=== PATIENT | male | born 1980 | race Caucasian/White ===

== ENCOUNTER 2016-12-02 21:57 | Observation (INO) ==
--- NOTE | 2016-12-02 23:23 | Emergency Department Note ---
SOB HPI - General Chief Complaint: Shortness of Breath/Dyspnea Stated Complaint: shortness of breath Time Seen by Provider: 12/02/16 23:20 Source: family Mode of arrival: ambulatory Limitations: no limitations - History of Present Illness States he has a history of CHF, is in the process of being set up for hospice but does not have any oxygen at his friend's house where he is currently staying up. He came down from [facility] about 24 hours ago. Since then has developed progressive shortness of breath to where his friend brought him in for further treatment. They just wanted to get some oxygen for him. He is not on hospice yet, but apparently is in the process of being set up for hospice as he has severe CHF, history of drug use in the past and cardiomyopathy. Has been to [facility], [facility], released one week ago from [facility], has been staying with friends and family up in [place] and was on oxygen up there. Was unable to bring his oxygen with him. Does have ankle swelling. He is on Xarelto, also has a DVT in the right leg up.this have some chest tightness, chest pain off and on MD Complaint: shortness of breath - Related Data Home Medications Medication Instructions Recorded Confirmed Carvedilol [Coreg] 3.125 mg PO BID 12/03/16 12/03/16 Citalopram [Celexa] 20 mg PO ONCE 12/03/16 12/03/16 Furosemide [Lasix] 40 mg PO BID 12/03/16 12/03/16 Guaifen-Codeine 100-10 mg/5 ml 100 mg PO Q4 PRN 12/03/16 12/03/16 Ondansetron [Zofran Odt] 8 mg PO Q8 PRN 12/03/16 12/03/16 Rivaroxaban [Xarelto] 15 mg PO BIDCC 12/03/16 12/03/16 Spironolactone [Aldactone] 25 mg PO ONCE 12/03/16 12/03/16 metFORMIN [Glucophage] 500 mg PO BIDCC 12/03/16 12/03/16 oxyCODONE [OxyCONTIN] 10 mg PO TID 12/03/16 12/03/16 Allergies Allergy/AdvReac Type Severity Reaction Status Date / Time No Known Drug Allergies Allergy Unverified 12/02/16 21:58 Review of Systems All systems ED: reviewed and negative except as stated. Past Medical History - Past Medical History Source: nursing notes reviewed Medical history: Reports: CHF, DVT, valvular heart disease, other (history of drug use) Family history: Reports: no significant family history, non-contributory - Social History smoking status: Former smoker Alcohol use: Reports: None Drug use: Reports: none Physical Exam - General Limitations: no limitations General appearance: alert, in distress - Head Head exam: atraumatic, normocephalic - Eye Eye exam: Present: normal appearance, PERRL. Absent: scleral icterus, conjunctival injection - ENT ENT exam: normal exam, normal oropharynx, mucous membranes moist, TM's normal bilaterally - Neck Neck exam: Present: normal inspection, full ROM, trachea midline - Chest Chest inspection: Present: normal inspection - Respiratory Respiratory exam: Present: respiratory distress, wheezes - Cardiovascular Cardiovascular exam: Present: regular rate, +S3 - Abdominal Exam Abdominal exam: Present: soft, normal bowel sounds. Absent: distention, tenderness, guarding - Extremities Exam Extremities exam: Present: normal inspection, pedal edema - Back Exam Back exam: Present: normal inspection. Absent: CVA tenderness (R), CVA tenderness (L) - Neurological Exam Neurological exam: Present: alert, oriented X3, CN II-XII intact. Absent: motor sensory deficit - Psychiatric Psychiatric exam: Present: normal affect - Skin Skin exam: Present: warm, dry, intact, cyanosis, mottled Course - Reevaluation(s) Reevaluation #1: Medical records reviewed. There were over [address] [facility] , which I looked at. He does have a history of severe right-sided heart failure secondary to long-standing oxycodone abuse. He was worked up, he had echocardiograms done, he has severe and end-stage pulmonary hypertension, which is untreatable at this point other than with his failure medications. The. He will need oxygen., Unfortunately, we are not able to set him up with O2 at home at this hour of the night. Thus, he will need to be admitted, perinatal social worker will need to be contacted regarding placement, his problems are chronic except they have become acute in the sense that he has an oxygen requirement, he does not wish resuscitation in the event his heart stops. He is aware of the severity of his illness and apparently was in the process of having hospice set up for him at his friend's house here in [facility]. He came down here from [place] where he was staying with his [id number] and his mother, but moved down here just the last 24 hours to be closer to his friend. He came in without oxygen, his levels were between 88 and 90% on room air.nfortunately, he has burned out all his veins for his continued IV drug abuse and we are not able to get IV access for him. As he is a no code. We willcare for him on themedical floor, telemetry monitoringthus not indicated as he has a DNR order,he has been medically stable since his discharge from [facility],however, does have an oxygen requirement. Vital Signs Temperature 98.0 F 12/02/16 21:58 Pulse Rate 84 12/02/16 21:58 Respiratory Rate 19 12/02/16 21:58 Blood Pressure 111/73 12/02/16 21:58 Pulse Oximetry (%) 89 L 12/02/16 21:58 Temperature 98.0 F 12/02/16 21:58 Pulse Rate 82 12/03/16 00:33 Respiratory Rate 19 12/02/16 21:58 Blood Pressure 103/83 12/03/16 00:33 Pulse Oximetry (%) 90 12/03/16 00:33 Shortness of Breath/Dyspnea - [facility] Narrative Medical decision making narrative: final diagnosis is CHF, pulmonary hypertension secondary to intravenous drug abuse He will need perinatal social worker consult, oxygen, and he can be started on his by mouth medications. The. His white blood cell count was normal, recently completed a course of antibioticsfor presumed abdominal infectionand/ or pneumonia. He does have an effusion on his chest x-ray, which was seen before. Discussed with Dr. Fisher - Lab Data Result diagrams: 12/02/16 23:27 12/02/16 23:27 Lab Results 12/02/16 12/02/16 12/02/16 Range/Units 23:27 23:27 23:27 WBC 9.1 (4.5-11.0) K/mcL RBC 4.91 (4.50-5.90) M/mcL Hgb 10.8 L (13.5-16.5) g/dL Hct 35.5 L (41.0-55.0) % MCV 72.3 L (80.0-100.0) fL MCH 22.0 L (26.0-34.0) pg MCHC 30.5 L (31.0-36.0) g/dL RDW 19.5 H (11.5-14.5) % Plt Count 247 (140-440) K/mcL MPV 8.4 (7.4-10.4) fL Gran % 74.0 (38.0-78.0) % Lymph % (Auto) 19.7 (15.5-49.0) % Hand % (Auto) 5.7 (1.0-9.0) % Eos % (Auto) 0.4 (0.0-7.0) % Baso % (Auto) 0.2 (0.0-2.0) % Gran # 6.7 (1.8-8.0) K/mcL Lymph # 1.8 (1.5-4.8) K/mcL Hand # 0.5 (0.1-0.9) K/mcL Eos # 0 (0.0-0.7) K/mcL Baso # 0 (0.0-0.3) K/mcL Sodium 125 L (133-145) mmol/L Potassium 4.9 (3.3-5.1) mmol/L Chloride 83 L (96-108) mmol/L Carbon Dioxide 28 (22-30) mmol/L Anion Gap 14.0 (8-16) BUN 33 H (6-20) mg/dl Creatinine 1.2 (0.7-1.2) mg/dl GFR Calculation 78 Glucose 223 H (70-105) mg/dL Calcium 8.3 L (8.6-10.4) mg/dl Magnesium 1.9 (1.6-2.5) mg/dL Total Bilirubin 0.8 (0.0-1.0) mg/dL AST 110 H (0-37) U/l ALT 62 H (0-40) U/l Alkaline Phosphatase 117 (39-117) U/L Troponin T < 0.01 (0-0.03) ng/ml NT-Pro-B Natriuret Pep 3989.0 H (0-125) pg/ml Total Protein 6.9 (5.9-8.4) gm/dL Albumin 3.0 L (3.2-5.2) gm/dL Globulin 3.9 H (2.2-3.7) gm/dL Albumin/Globulin Ratio 0.8 L (1.0-2.3) Disposition Clinical Impression: Congestive heart failure Disposition: Xfer As Outpt/Obs ([facility]) Condition: Fair Referrals: Lacy Steiner MD [Primary Care Provider] -
[2016-12-02] MEDS ORDERED: 0.9 % SODIUM CHLORIDE 10 ML SYRINGE IV ONE (23:25)
[2016-12-03 00:15] LABS: Basophils # (Auto) 0 K/mcL (0.0-0.3); Basophils % (Auto) 0.2 % (0.0-2.0); Eosinophils # (Auto) 0 K/mcL (0.0-0.7); Eosinophils % (Auto) 0.4 % (0.0-7.0); Lymphocytes # (Auto) 1.8 K/mcL (1.5-4.8); Lymphocytes % (Auto) 19.7 % (15.5-49.0); Mean Cell Volume 72.3 fL (80.0-100.0); Mean Corpuscular HGB Conc 30.5 g/dL (31.0-36.0); Monocytes # (Auto) 0.5 K/mcL (0.1-0.9); Monocytes % (Auto) 5.7 % (1.0-9.0); Platelet Count 247 K/mcL (140-440); RBC 4.91 M/mcL (4.50-5.90); Red Cell Distribution Width 19.5 % (11.5-14.5)
[2016-12-03 00:26] LABS: ALT/SGPT 62 U/l (0-40); Albumin/Globulin Ratio 0.8 (1.0-2.3); Alkaline Phosphatase 117 U/L (39-117); Blood Urea Nitrogen 33 mg/dl (6-20); Magnesium 1.9 mg/dL (1.6-2.5)
[2016-12-03] MEDS ORDERED: ACETAMINOPHEN 325 MG TABLET PO PRN (01:45)
[2016-12-03] MEDS ORDERED: ONDANSETRON 4 MG/2 ML VIAL IV PRN (01:45)
[2016-12-03] MEDS: ONDANSETRON ODT 4 MG TABLET SL PRN ×2 (07:15→15:44)
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
[2016-12-03] MEDS ORDERED: oxyCODONE HCL 5 MG TABLET PO PRN (08:33)
[2016-12-03] MEDS: oxyCODONE 10 MG TAB.ER.12H PO SCH ×3 (08:34→21:22)
--- NOTE | 2016-12-03 08:39 | XRay Report ---
CLINICAL INFORMATION: Dyspnea COMPARISON: None. FINDINGS: Mild cardiomegaly is appreciated. Mediastinum and pulmonary vasculature are normal. Moderate size right pleural effusion is noted with moderate underlying airspace disease in the inferior right middle and lower lobes. This is likely atelectasis. Bones and soft tissues are normal IMPRESSION: Moderate right pleural effusion with moderate overlying atelectasis, or less likely, infiltrate in the inferior right middle and lower lobes. Mild cardiomegaly - no evidence CHF Interpreted and Authenticated by: Alonzo Hernandez 12/03/16
[2016-12-03] MEDS: CARVEDILOL 3.125 MG TABLET PO SCH ×2 (08:41→17:43)
[2016-12-03] MEDS: SPIRONOLACTONE 25 MG TABLET PO SCH (08:41)
[2016-12-03] MEDS: FUROSEMIDE 40 MG TABLET PO SCH ×2 (08:41→17:42)
[2016-12-03] MEDS: CITALOPRAM 20 MG TABLET PO SCH (08:41)
[2016-12-03] MEDS ORDERED: oxyCODONE 10 MG TAB.ER.12H PO SCH (09:00)
[2016-12-03] MEDS: LIDOCAINE PATCH TOPICAL SCH ×2 (13:20→21:21)
[2016-12-03] MEDS ORDERED: DEXTROSE 50% 50 ML VIAL IV PRN (13:26)
[2016-12-03] MEDS ORDERED: AZITHROMYCIN 250 MG TABLET PO ONE (14:00)
[2016-12-03] MEDS ORDERED: AMOXICILLIN/POTASSIUM CLAV 875 MG TABLET PO SCH (17:30)
[2016-12-03] MEDS: INSULIN LISPRO 1 UNIT/0.01 ML UNIT SQ SCH ×2 (17:42→21:22)
[2016-12-03] MEDS: RIVAROXABAN 15 MG TABLET PO SCH (17:44)
[2016-12-03] MEDS ORDERED: ONDANSETRON ODT 4 MG TABLET SL PRN (18:32)
[2016-12-03] MEDS: PIPERACILLIN SODIUM/TAZOBACTAM 3.375 GM in DEXTROSE 5% IN WATER 50 ML IV SCH (19:07)
[2016-12-03] MEDS: AZITHROMYCIN 500 MG in DEXTROSE 5% IN WATER 250 ML IV SCH (19:07)
[2016-12-04] MEDS: PIPERACILLIN SODIUM/TAZOBACTAM 3.375 GM in DEXTROSE 5% IN WATER 50 ML IV SCH (05:04)
[2016-12-04] MEDS: FUROSEMIDE 40 MG TABLET PO SCH ×2 (08:36→16:45)
[2016-12-04] MEDS: CARVEDILOL 3.125 MG TABLET PO SCH ×2 (08:36→17:25)
[2016-12-04] MEDS: RIVAROXABAN 15 MG TABLET PO SCH ×2 (08:36→17:25)
[2016-12-04] MEDS: SPIRONOLACTONE 25 MG TABLET PO SCH (08:36)
[2016-12-04] MEDS: INSULIN LISPRO 1 UNIT/0.01 ML UNIT SQ SCH ×4 (08:36→21:02)
[2016-12-04] MEDS: CITALOPRAM 20 MG TABLET PO SCH (08:37)
[2016-12-04] MEDS: oxyCODONE 10 MG TAB.ER.12H PO SCH ×3 (08:37→21:02)
[2016-12-04] MEDS ORDERED: AZITHROMYCIN 250 MG TABLET PO SCH (09:00)
[2016-12-04] MEDS: AZITHROMYCIN 250 MG TABLET PO SCH (10:06)
[2016-12-04] MEDS: AZITHROMYCIN 500 MG in DEXTROSE 5% IN WATER 250 ML IV SCH (10:13)
[2016-12-04] MEDS: LIDOCAINE PATCH TOPICAL SCH ×2 (12:32→21:04)
--- NOTE | 2016-12-04 14:01 | Internal Med Progress Note ---
Medical - PN: Subj Patient information: Note initiated : 12/04/16 at 2:01 pm Service Date, if different from initiated Date: [] Patient: Hector Willett 36 y/o M admitted on 12/03/16 for Shortness of breath. Chief Complaint: [] Interval history: 12/03/2016: History of present illness: Mr. Willett is a 36 year old male ho was in his normal state of health until about 6 months ago when he began to notice significant shortness of breath. He reports he went to the emergency room several times, and they just told him that he had issues related to being a former drug abuser finally, he was admitted to the hospital about2-1/2 months ago, and was subsequently diagnosed with pulmonary hypertension and severe right heart failure. Apparently a week or 2 after his angiogram, he developed a right lower extremity DVT. He was apparently admitted at [facility] [place] well as in [facility], for workup and treatment. He was started on several medications, and then discharged on Monday. [place], he decided to move to [facility] with a friend, so that he would be closer [facility] treatment. He was supposed to transfer down here to the [facility] clinic. Unfortunately several days ago he developed a cough productive of brownish phlegm, and has had increasing shortness of breath ever since. -He reports that the doctors told him at the other hospital that he might be a transplant candidate, but would have to be absolutely drug free for at least one year, and they told him they were not sure that he would ot before then. Apparently at least someone has discussed hospice with him as an option also. 12/04/2016: We placed a Lidoderm patch on the patient's mid back last night, and apparently that helped with this pain, and he said he had a really good nights sleep. Unfortunately he ate he continued to have significant nausea and dry heaves. I decided to switch his antibiotics from oral to IV yesterday, but then the nursing staff reminded me several people have tried to get IV access, and could not. So now we have switched his antibiotics back to oral. I believe he is kept those down so far today. Nursing staff notes that sometimes when he is coughing that will trigger the dry heaves. he continues to have a significant cough productive of reddish brown sputum. He continues to have severe fatigue, even with minimal activity. -more of his hospital records were reviewed last night,and he does have severe right heart dysfunction and pulmonary hypertension. It is unclear from the records if he has been abstinent from drugs for 2 months or not. Different writers say different things. He would be a candidate for heart and lung transplant, if he were drug-free for at least 1 year. -Our social work team is working on figuring out his insurance situation and getting him connected with local care. Otherwise, he denies fever or chills, chest pain or palpitations, abdominal pain , vomiting of food, diarrhea or constipation or dysuria. - Constitutional Vitals: Vital Signs Temp Pulse Resp BP Pulse Ox 97.9 F 55 L 16 136/57 96 12/04/16 13:07 12/04/16 13:07 12/04/16 13:07 12/04/16 13:07 12/04/16 13:07 Period Temp Pulse Resp BP Sys/Peña Pulse Ox Last 24 Hr 96.9 F-98.7 F 55-80 16-18 90-136/54-70 91-96 Intake and Output 12/04/16 12/04/16 12/04/16 05:59 13:59 21:59 Intake Total Output Total 200 / 200 Balance -200 / -200 Intake & Output: Intake & Output 12/04/16 12/04/16 12/04/16 05:59 13:59 21:59 Intake Total Output Total 200 / 200 Balance -200 / -200 Intake: Oral Output: Void Amount 200 / 200 Exam: on exam, he is dozing in a recliner. Apparently he is more comfortable in the recliner than in the bed. Neck shows no obvious JVD. Cardiac exam shows regular rate and rhythm. Lungs:have generally decreased breath sounds, with occasional crackles. Abdomen: Appears soft and nontender. Extremities: He has about 3+ edema to above the knee and the right leg, and the left lower extremity shows no edema. Neurologic: He is rather somnolent this morning. Medical - PN: Obj Da - Labs CBC & Chem 7: 12/02/16 23:27 12/02/16 23:27 Labs: 12/04/16: - saturation varies from 89% on room air to 96% on room air to 92% on 2 L 12/03/16: AST is elevated at 110, ALT elevated at 62 BNP is elevated at 3900 Albumin is low at 3.0 EKG shows normal sinus rhythm at a rate of about 75, without obvious acute ischemic changes. Chest x-ray shows a moderately large right pleural effusion with overlying atelectasis or possible infiltrate of the inferiorright middle and lower lobes. Mild cardiomegaly is noted. Meds: Medications Acetaminophen (Tylenol) 650 mg PO Q6HP PRN PRN Reason: PAIN/FEVER > 101 Amoxicillin/Clavulanate [facility] Azithromycin (Zithromax) 250 mg PO DAILY [facility] Stop: 12/07/16 09:01 Last Admin: 12/04/16 10:06 Dose: 250 mg Carvedilol (Coreg) [facility] Last Admin: 12/04/16 08:36 Dose: 3.125 mg Citalopram Hydrobromide (Celexa) 20 mg PO DAILY [facility] Last Admin: 12/04/16 08:37 Dose: 20 mg Dextrose (Dextrose 50%) 0 ml IV UD PRN PRN Reason: Hypoglycemia Diagnostic Test (Pha) (Accu-Chek) 1 each FS [facility] Last Admin: 12/04/16 13:53 Dose: 1 each Furosemide (Lasix) 40 mg PO BIDD [facility] Last Admin: 12/04/16 08:36 Dose: 40 mg Insulin Human Lispro (Humalog) 0 unit SQ [facility] PRN Reason: Protocol Last Admin: 12/04/16 08:36 Dose: Not Given Lidocaine (Lidoderm) 1 patch TOPICAL DAILY@1000 [facility] Last Admin: 12/04/16 12:32 Dose: Not Given Lidocaine (Lidoderm) 0 patch TOPICAL DAILY@2200 [facility] Last Admin: 12/03/16 21:21 Dose: 1 patch Ondansetron HCl (Zofran Odt) 4 mg SL Q4HP PRN PRN Reason: Nausea And Vomiting Last Admin: 12/03/16 18:36 Dose: 4 mg Oxycodone HCl (Oxycontin) 10 mg PO TID [facility] Last Admin: 12/04/16 08:37 Dose: 10 mg Oxycodone HCl (Roxicodone) 5 mg PO Q4HP PRN PRN Reason: Pain Rivaroxaban (Xarelto) 15 mg PO BIDCC [facility] Last Admin: 12/04/16 08:36 Dose: 15 mg Spironolactone (Aldactone) 25 mg PO DAILY [facility] Last Admin: 12/04/16 08:36 Dose: 25 mg Medical - PN: A/P - Time Spent With Patient Total time spent is greater than 50% in coordination of care (as documented) at patient's floor/unit and/or counseling patient: (1) DVT (deep venous thrombosis) Status: Acute Current Visit: Yes (2) Congestive heart failure Status: Chronic Current Visit: Yes (3) Pulmonary hypertension Status: Chronic Current Visit: Yes (4) Hx of drug abuse Status: Chronic Current Visit: Yes (5) CHF (NYHA class III, ACC/AHA stage C) Status: Acute Current Visit: Yes - Narrative A/P Narrative: #1.cardiopulmonary. -this patient was recently diagnosed with severe pulmonary hypertension associated now with severe right-sided heart failure He has chronic and persistent dyspnea. It sounds like his symptoms have improved somewhat since she was started on the appropriate medications, but he does present with room air hypoxia, and will likely require ongoing oxygen therapy. Unfortunately, he has a very poor support system . -he has been placed on oxygen, and hasquite labile oxygen levels, depending on his activity levels. Social work is working on looking into his insurance situation and trying to arrange for outpatient follow-up and outpatient care. Because of his recent drug abuse, he is not a candidate for transplant at least not until he is clean for 1 year. They told him he might not survive that long. -He also has a long-standing history of PTSD, and has been self-medicating with drugs and alcohol. He is now been abstinent for about 2 months. He is now on medications to help with both his chronic pain and chronic anxiety. -I believe he is to establish care with the [facility] clinic locally. #2. Infectious disease. The patient does have a cough productive of brownish phlegm. -both oral Zithromax and Augmentin have been prescribed, and hopefully he can keep these down, as he appears to have signs and symptoms of pneumonia versus bronchitis. -Tussin before meals to help with his cough. -review of other hospital records show that his hepatitis panel and his HIV screens were negative. I did not see if anyone had checked him for tuberculosis. #3. DVT. The patient has been placed on Xarelto for 6 months for his right lower extremity DVT, which appears to be related to his angiogram. Apparently he was tried on Coumadin but could not keep levels stable. #4. endocrine. Type 2 diabetes. He was transitioned to metformin when he left the previous hospital, but I am not sure that's a great choice for him given diuretic therapy and mild liver dysfunction. -current numbers are labile, with glucoses ranging from 1:30 to 364. He is being covered with sliding scale insulin. according to nurses he also tends to like sugary foods and sugary drinks, and really doesn't like to eat protein or fat. -for diabetes education. Consider starting low-dose Lantus. -Hyponatremia. This is likely due to diuretic use. Continue to monitor. #5. Psychiatric. the patient sounds like he has a long-standing history of anxiety and probable PTSD. He certainly was self-medicating for a number of years. He is now on Celexa, and ideally should have psychiatric follow-up. #6. CODE STATUS: He is reported as a no CPR candidate. He apparently was told at the previous hospital that he was terminal, although given his very young age and in reasonable health status outside of his current active issues, he may well survive for the one year that would be needed for him to be placed on the transplant list, if he can stay clean and free of illegal drugs. We may want to revisit this issue at a later time. 37. Social. He will need a social work consult to help facilitate obtaining Medicaid insurance, and other needed medical treatments at this time. We will need to be sure that he is also hooked up with a new primary care provider,and that he will have follow-up with heart and lung specialist as needed. #8. Chronic pain. He apparently has significant chronic back pain. He is currently been weaned to OxyContin 10 mg 3 times a day. I've added a when necessary oxycodone dose We could add low-dose Tylenol cautiously, in view of his liver dysfunction, which is likely due to passive congestion. -The Lidoderm patch does apparently seem to offer some relief of back pain, and did allow him to sleep last night. . physical therapy. He is not a good candidate for NSAIDs at this time. -we could look into trying a TENS unit as well. So far today, this visit is taken approximately 35 minutes, to review his case with nursing staff as well as social work, review his test results and more medical records, interview and examine him, and write orders. Medical - PN: Qual - VTE Deep Vein Thrombosis/Pulmonary Embolism Present on Admission: No
[2016-12-04] MEDS ORDERED: guaiFENesin/CODEINE 10 ML UDC PO PRN (15:02)
[2016-12-04] MEDS: AMOXICILLIN/POTASSIUM CLAV 875 MG TABLET PO SCH (17:25)
[2016-12-04] MEDS ORDERED: INSULIN GLARGINE, HUMAN 1 UNIT/0.01 ML SQ SCH (21:00)
[2016-12-05 05:40] LABS: Basophils # (Auto) 0 K/mcL (0.0-0.3); Basophils % (Auto) 0.1 % (0.0-2.0); Eosinophils # (Auto) 0 K/mcL (0.0-0.7); Eosinophils % (Auto) 0.1 % (0.0-7.0); Granulocytes % (Auto) 68.4 % (38.0-78.0); Lymphocytes # (Auto) 1.7 K/mcL (1.5-4.8); Lymphocytes % (Auto) 23.7 % (15.5-49.0); Mean Cell Volume 71.1 fL (80.0-100.0); Mean Corpuscular HGB Conc 30.8 g/dL (31.0-36.0); Mean Corpuscular Hemoglobin 21.9 pg (26.0-34.0); Monocytes # (Auto) 0.6 K/mcL (0.1-0.9); Monocytes % (Auto) 7.7 % (1.0-9.0); Platelet Count 73 K/mcL (140-440); RBC 5.06 M/mcL (4.50-5.90); Red Cell Distribution Width 19.2 % (11.5-14.5)
[2016-12-05 06:05] LABS: ALT/SGPT 56 U/l (0-40); Albumin 3.3 gm/dL (3.2-5.2); Albumin/Globulin Ratio 0.8 (1.0-2.3); Alkaline Phosphatase 120 U/L (39-117); Blood Urea Nitrogen 27 mg/dl (6-20); Magnesium 1.8 mg/dL (1.6-2.5)
[2016-12-05] MEDS: SPIRONOLACTONE 25 MG TABLET PO SCH (08:47)
[2016-12-05] MEDS: INSULIN LISPRO 1 UNIT/0.01 ML UNIT SQ SCH ×2 (08:47→12:29)
[2016-12-05] MEDS: CARVEDILOL 3.125 MG TABLET PO SCH (08:47)
[2016-12-05] MEDS: FUROSEMIDE 40 MG TABLET PO SCH ×2 (08:47→15:44)
[2016-12-05] MEDS: AMOXICILLIN/POTASSIUM CLAV 875 MG TABLET PO SCH ×2 (08:47→15:44)
[2016-12-05] MEDS: AZITHROMYCIN 250 MG TABLET PO SCH (08:48)
[2016-12-05] MEDS: oxyCODONE 10 MG TAB.ER.12H PO SCH ×2 (08:48→15:43)
[2016-12-05] MEDS: CITALOPRAM 20 MG TABLET PO SCH (08:48)
[2016-12-05] MEDS: RIVAROXABAN 15 MG TABLET PO SCH (08:53)
--- NOTE | 2016-12-05 09:21 | Internal Med Progress Note ---
Medical - PN: Subj Patient information: Note initiated : 12/05/16 at 9:21 am Service Date, if different from initiated Date: [] Patient: Hector Willett 36 y/o M admitted on 12/03/16 for Shortness of Breath/ CHF. Chief Complaint: [] - Constitutional Vitals: Vital Signs Temp Pulse Resp BP Pulse Ox 97.2 F L 71 16 96/54 91 12/05/16 03:55 12/05/16 03:55 12/05/16 03:55 12/05/16 03:55 12/05/16 07:22 Period Temp Pulse Resp BP Sys/Peña Pulse Ox Last 24 Hr 96.9 F-98.2 F 55-80 16-20 91-136/54-74 91-96 Intake and Output 12/04/16 12/05/16 12/05/16 21:59 05:59 13:59 Intake Total 100 / 100 240 / 240 Output Total 400 / 400 500 / 500 Balance -300 / -300 -260 / -260 Weight 191 lb Intake & Output: Intake & Output 12/04/16 12/05/16 12/05/16 21:59 05:59 13:59 Intake Total 100 / 100 240 / 240 Output Total 400 / 400 500 / 500 Balance -300 / -300 -260 / -260 Weight 191 lb Intake: Oral 100 / 100 240 / 240 Output: Void Amount 400 / 400 500 / 500 Other: Meal Lunch Percent of Meal Consumed Refused # Bowel Movements 1 Medical - PN: Obj Da - Labs CBC & Chem 7: 12/05/16 04:24 12/05/16 04:24 Labs: Abnormal Lab Results 12/05/16 12/05/16 04:24 04:24 Hgb 11.1 L Hct 36.0 L MCV 71.1 L MCH 21.9 L MCHC 30.8 L RDW 19.2 H Plt Count 73 L Sodium 130 L Chloride 87 L Carbon Dioxide 32 H BUN 27 H Glucose 111 H AST 60 H ALT 56 H Alkaline Phosphatase 120 H Globulin 3.9 H Albumin/Globulin Ratio 0.8 L Meds: Medications Acetaminophen (Tylenol) 650 mg PO Q6HP PRN PRN Reason: PAIN/FEVER > 101 Amoxicillin/Clavulanate Potassium (Augmentin) 875 mg PO BIDCC [facility] Last Admin: 12/05/16 08:47 Dose: 875 mg Azithromycin (Zithromax) 250 mg PO DAILY [facility] Stop: 12/07/16 09:01 Last Admin: 12/05/16 08:48 Dose: 250 mg [facility] Last Admin: 12/05/16 08:47 Dose: 3.125 mg Citalopram Hydrobromide (Celexa) 20 mg PO DAILY [facility] Last Admin: 12/05/16 08:48 Dose: 20 mg Dextrose (Dextrose 50%) 0 ml IV UD PRN PRN Reason: Hypoglycemia Diagnostic Test (Pha) (Accu-Chek) 1 each FS [facility] Last Admin: 12/05/16 08:46 Dose: 1 each Furosemide (Lasix) 40 mg PO BIDD [facility] Last Admin: 12/05/16 08:47 Dose: 40 mg Guaifenesin/Codeine Phosphate (Robitussin Ac) 10 ml PO Q4HP PRN PRN Reason: Cough Insulin Glargine (Lantus) 5 unit SQ [facility] Last Admin: 12/04/16 21:03 Dose: 5 unit Insulin Human Lispro (Humalog) 0 unit SQ [facility] PRN Reason: Protocol Last Admin: 12/05/16 08:47 Dose: Not Given Lidocaine (Lidoderm) 1 patch TOPICAL DAILY@1000 [facility] Last Admin: 12/04/16 12:32 Dose: Not Given Lidocaine (Lidoderm) 0 patch TOPICAL DAILY@2200 [facility] Last Admin: 12/04/16 21:04 Dose: Not Given Ondansetron HCl (Zofran Odt) 4 mg SL Q4HP PRN PRN Reason: Nausea And Vomiting Last Admin: 12/03/16 18:36 Dose: 4 mg Oxycodone HCl (Oxycontin) 10 mg PO TID [facility] Last Admin: 12/05/16 08:48 Dose: 10 mg Oxycodone HCl (Roxicodone) 5 mg PO Q4HP PRN PRN Reason: Pain [facility] Last Admin: 12/05/16 08:53 Dose: 15 mg Spironolactone (Aldactone) 25 mg PO DAILY [facility] Last Admin: 12/05/16 08:47 Dose: 25 mg Medical - PN: A/P - Time Spent With Patient Total time spent is greater than 50% in coordination of care (as documented) at patient's floor/unit and/or counseling patient: (1) DVT (deep venous thrombosis) Status: Acute Current Visit: Yes (2) Congestive heart failure Status: Chronic Current Visit: Yes (3) Pulmonary hypertension Status: Chronic Current Visit: Yes (4) Hx of drug abuse Status: Chronic Current Visit: Yes (5) CHF (NYHA class III, ACC/AHA stage C) Status: Acute Current Visit: Yes Medical - PN: Qual - VTE Deep Vein Thrombosis/Pulmonary Embolism Present on Admission: No
[2016-12-05] MEDS: LIDOCAINE PATCH TOPICAL SCH (10:46)
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
== END 2016-12-05 16:10 | disposition home or self-care (01) ==
LOC: ICU 21:57 → ED 21:57 → ICU 12-03 02:31
PROVIDERS: ADMIT Internal Medicine; ATTEND Internal Medicine